=== PATIENT | female | born 1995 | race African-American/Black ===

== ENCOUNTER 2017-03-18 02:36 | Emergency (ER) | payer MEDICAID ==
[2017-03-18] MEDS ORDERED: ACETAMINOPHEN 325 MG TABLET PO ONE (03:01)
--- NOTE | 2017-03-18 03:05 | ER Document Report ---
ED General - General Chief Complaint: Abdominal Pain Stated Complaint: ABDOMEN PAIN/DIZZY/HEADACHE Time Seen by Provider: 03/18/17 02:56 Notes: Patient is a 21-year-old female who is currently . She states was about 5-6 weeks . No ultrasound yet. She complains of crampy lower abdominal pain that radiates to her back. She says it feels like a menstrual cramp. She also has mild headache. Says headache is also been there for 2 days. She has not taken anything for the headache at home. No vomiting. No fevers. No diarrhea. No dysuria. No other complaints at this time. No abnormal vaginal discharge or bleeding. TRAVEL OUTSIDE OF THE [place] IN LAST 30 DAYS: No - Related Data Allergies/Adverse Reactions: No Known Allergies Allergy (Verified 05/31/16 11:19) Past Medical History - Social History Smoking Status: Unknown if Ever Smoked Frequency of alcohol use: None Drug Abuse: None Family History: CAD, DM Patient has suicidal ideation: No Patient has homicidal ideation: No - Past Medical History Cardiac Medical History: Reports: Hx Hypertension - during pregnenacy Pulmonary Medical History: Reports: Hx Asthma Neurological Medical History: Reports: Hx Migraine Renal/ Medical History: Denies: Hx Peritoneal Dialysis Psychiatric Medical History: Reports: Hx Attention Deficit Hyperactivity Disorder Traumatic Medical History: Reports: Hx Fractures Past Surgical History: Reports: Hx Orthopedic Surgery - Immunizations Immunizations up to date: Yes Hx Diphtheria, Pertussis, Tetanus Vaccination: Yes Review of Systems - Review of Systems Notes: My Normal Review Basic REVIEW OF SYSTEMS: CONSTITUTIONAL : Denies fever, chills, or sweats. Denies recent illness. RESPIRATORY: Denies cough, cold, or chest congestion. Denies shortness of breath, difficulty breathing, or wheezing. GASTROINTESTINAL: Lower abdominal pain. Denies nausea, vomiting, or diarrhea. Denies constipation. Last BM: GENITOURINARY: Denies difficulty urinating, painful urination, burning, frequency, or blood in urine. FEMALE GENITOURINARY: Denies vaginal bleeding, abnormal or irregular periods. LMP: Currently . MUSCULOSKELETAL: Denies neck or back pain or joint pain or swelling. SKIN: Denies rash or skin lesions. HEMATOLOGIC : Denies easy bruising or bleeding. LYMPHATIC: Denies swollen, enlarged glands. NEUROLOGICAL: Denies altered mental status or loss of consciousness. Denies headache. Denies weakness or paralysis or loss of use of either side. Denies problems with gait or speech. Denies sensory or motor loss. ALL OTHER SYSTEMS REVIEWED AND NEGATIVE. Physical Exam - Vital signs Vitals: Temp Pulse Resp BP Pulse Ox 98 F 80 18 119/66 99 03/18/17 02:42 03/18/17 02:42 03/18/17 02:42 03/18/17 02:42 03/18/17 02:42 - Notes Notes: General Appearance: Well nourished, alert, cooperative, no acute distress, no obvious discomfort. Well appearing. Vitals: reviewed, See vital signs table. Head: no swelling or tenderness to the head Eyes: PERRL, EOMI, Conjuctiva clear Mouth: No decreasd moisture Neck: Supple, no neck tenderness Lungs: No wheezing, No rales, No rhonci, No accessory muscle use, good air exchange bilaterally. Heart: Normal rate, Regular rythm, No murmur, no rub Abdomen: Normal BS, soft, No rigidity, mild lower abdominal tenderness, No guarding, no rebound, no abdominal masses, no organomegaly Extremities: strength 5/5 in all extremities, good pulses in all extremities, no swelling or tenderness in the extremities, no edema. Skin: warm, dry, appropriate color, no rash Neuro: speech clear, oriented x 3, normal affect, responds appropriately to questions. Cranial nerves II through XII are intact. Patient was all extremities on her own. No focal neurologic deficits on exam. Course - Re-evaluation Re-evalutation: 03/18/17 05:14 Patient has pain which sounds to be urine type contraction or crampy type pain. She describes it as menstrual type pain. Her ultrasound shows a IUP with evidence of cardiac activity. He cannot measure the heart rate. Pelvic exam did not show any evidence of discharge or bleeding. Wet prep is negative. At this time for the patient safe to be discharged home. I encouraged her [facility]. Encouraged to return to the ER if she has worsening pain, any vaginal bleeding, fevers, or feels unwell. I encourage her to continue to take vitamins. Patient agrees with plan and will be discharged home. Dictation of this chart was performed using voice recognition software; therefore, there may be some unintended grammatical errors. - Vital Signs Vital signs: Temp Pulse Resp BP Pulse Ox 98 F 80 18 119/66 99 03/18/17 02:42 03/18/17 02:42 03/18/17 02:42 03/18/17 02:42 03/18/17 02:42 - Laboratory Laboratory results interpreted by me: 03/18/17 03/18/17 03:09 04:32 Beta HCG, Quant 08112.00 H Urine Ketones TRACE H Discharge - Discharge Clinical Impression: Abdominal pain affecting Condition: Good Disposition: HOME, SELF-CARE Additional Instructions: Please take vitamins. Please take acetaminophen for pain. [facility] and continued management of your . please return to the ER immediately if you have worsening pain, fevers, vaginal bleeding, or feel unwell. Referrals: TIARRA CEDENO MD [Primary Care Provider] - Follow up as needed LORIN ARRIAGA DO [[facility]] - Follow up in 3-5 days
[2017-03-18 04:44] LABS: APPEARANCE,URINE SLIGHTLY-CLOUDY; BILIRUBIN,URINE NEGATIVE (NEGATIVE); GLUCOSE, URINE NEGATIVE (NEGATIVE); KETONES,URINE TRACE mg/dL (NEGATIVE); LEUKOCYTE ESTERASE,URINE NEGATIVE (NEGATIVE); NITRITE,URINE NEGATIVE (NEGATIVE); PROTEIN,URINE NEGATIVE (NEGATIVE); URINE SPECIFIC GRAVITY 1.019; UROBILINOGEN,URINE NEGATIVE mg/dL (<2.0)
--- NOTE | 2017-03-18 05:01 | RADIOLOGY REPORT (SQ) ---
EXAM DESCRIPTION: U/S OB TRANSVAG W/DOPPLER COMPLETED DATE/TIME: 03/18/2017 4:42 am REASON FOR STUDY: abdominal pain in COMPARISON: None. TECHNIQUE: Transvaginal static and realtime grayscale images acquired of the pelvis. Additional lucas cted spectral and color Doppler images recorded. All images stored [place] PACs[place] [facility] [email or web address] LIMITATIONS: None. FINDINGS: FETUS: Intrauterine . EGA: 6 week 1 day NARDA: 11/10/2017 FHR: cardiac flicker. SUBCHORIONIC BLEED: No. SIZE OF BLEED: Not applicable. UTERUS: Measures 9.7 x 5.2 x 5.3 cm. CERVICAL LENGTH: Measures 2.8 cm. Closed. RIGHT ADNEXA: The right ovary measures 2.3 x 2.3 x 2.3 cm. Flow by Doppler was shown to the right ov jack. LEFT ADNEXA: The left ovary was not visualized. FREE FLUID: None. IMPRESSION: INTRAUTERINE WITH CARDIAC FLICKER, SHORT-TERM FOLLOWUP ULTRASOUND RECOMM ENDED TO RE-EVALUATE THE HEART RATE. EGA 6 WEEKS 1 DAY. Trimester of : First - 0 to 13 weeks. TECHNICAL DOCUMENTATION: JOB ID: [id number] [employer]- All Rights Reserved
[2017-03-18 05:17] LABS: CHLAM PCR NOT DETECTED (NOT DETECT)
[2017-03-18 06:06] VITALS: BP 114/65
== END 2017-03-18 05:45 | disposition home or self-care (01) ==
LOC: ER 02:36
DX: O26.899 Other specified pregnancy related conditions, unspecified trimester (principal); R10.30 Lower abdominal pain, unspecified; R51 Headache; O99.519 Diseases of the respiratory system complicating pregnancy, unspecified trimester; J45.909 Unspecified asthma, uncomplicated; Z3A.00 Weeks of gestation of pregnancy not specified
CPT/HCPCS: 99284; 36415; 87210; 84702; 81001; 87491; 87591; 76817; 93976; J3490

== ENCOUNTER → 2017-04-17 | Outpatient (CLI) | payer MEDICAID ==
[2017-04-17 13:43] LABS: ALANINE AMINOTRANSFERASE 18 U/L (9-52); ALBUMIN 4.5 g/dL (3.5-5.0); ALKALINE PHOSPHATASE 59 U/L (38-126); ANION GAP 14 (5-19); ASPARTATE AMINO TRANSFERASE 15 U/L (14-36); BILIRUBIN,DIRECT 0.3 mg/dL (0.0-0.4); BILIRUBIN,TOTAL 0.5 mg/dL (0.2-1.3); BLOOD UREA NITROGEN 9 mg/dL (7-20); CALCIUM 9.8 mg/dL (8.4-10.2); CARBON DIOXIDE 22 mmol/L (22-30); CHLORIDE 101 mmol/L (98-107); CREATININE RESULT 0.71 mg/dL (0.52-1.25); GLUCOSE 90 mg/dL (75-110); POTASSIUM 4.1 mmol/L (3.6-5.0); SODIUM 136.6 mmol/L (137-145)
== END ==
LOC: OCH 13:09
DX: Z34.81 Encounter for supervision of other normal pregnancy, first trimester (principal)
CPT/HCPCS: 36415; 80053

== ENCOUNTER 2017-04-18 14:23 | Emergency (ER) | payer MEDICAID ==
[2017-04-18 14:39] VITALS: BP 130/71
[2017-04-18] MEDS ORDERED: KETOROLAC TROMETHAMINE 60 MG/2 ML SDV IM ONE (15:17)
--- NOTE | 2017-04-18 15:18 | ER Document Report ---
ED Medical Screen (RME) - General Chief Complaint: Abdominal Pain Stated Complaint: FOOT INJURY Time Seen by Provider: 04/18/17 15:13 Mode of Arrival: Wheelchair Information source: Patient Notes: 21-year-old female presents with 2 separate complaints, patient notes she has right foot and ankle pain after fall 3-4 days ago. Patient has been able to ambulate on. Patient also notes body aches generalized with fever. Patient notes intermittent urinary incontinence when she vomits I have greeted and performed a rapid initial assessment of this patient. A comprehensive ED assessment and evaluation of the patient, analysis of test results and completion of the medical decision making process will be conducted by additional ED providers. PHYSICAL EXAMINATION: GENERAL: Well-appearing, well-nourished and in no acute distress. HEAD: Atraumatic, normocephalic. EYES: Pupils equal round extraocular movements intact, conjunctiva are normal. ENT: Nares patent NECK: Normal range of motion LUNGS: No respiratory distress Musculoskeletal: Normal range of motion, mild tenderness of the right ankle NEUROLOGICAL: Normal speech, normal gait. PSYCH: Normal mood, normal affect. SKIN: Warm, Dry, normal turgor, no rashes or lesions noted. TRAVEL OUTSIDE OF THE [place] IN LAST 30 DAYS: No - Related Data Allergies/Adverse Reactions: No Known Allergies Allergy (Verified 04/18/17 14:30) Home Medications: Current Home Medications No Home Medications 04/18/17 [History] Past Medical History - Social History Chew tobacco use (# tins/day): No Frequency of alcohol use: None Drug Abuse: None - Past Medical History Cardiac Medical History: Reports: Hx Hypertension - during pregnenacy Pulmonary Medical History: Reports: Hx Asthma Neurological Medical History: Reports: Hx Migraine Renal/ Medical History: Denies: Hx Peritoneal Dialysis Psychiatric Medical History: Reports: Hx Attention Deficit Hyperactivity Disorder Traumatic Medical History: Reports: Hx Fractures Past Surgical History: Reports: Hx Orthopedic Surgery - Immunizations Immunizations up to date: Yes Hx Diphtheria, Pertussis, Tetanus Vaccination: Yes Physical Exam - Vital signs Vitals: Temp Pulse Resp BP Pulse Ox 99.6 F 97 16 130/71 H 99 04/18/17 14:29 04/18/17 14:29 04/18/17 14:29 04/18/17 14:29 04/18/17 14:29 Course - Vital Signs Vital signs: Temp Pulse Resp BP Pulse Ox 99.6 F 97 16 130/71 H 99 04/18/17 14:29 04/18/17 14:29 04/18/17 14:29 04/18/17 14:29 04/18/17 14:29
[2017-04-18] MEDS ORDERED: ACETAMINOPHEN 325 MG TABLET PO ONE (15:38)
[2017-04-18 15:58] LABS: ABSOLUTE LYMPHOCYTES (AUTO) 0.4 10^3/uL (0.5-4.7); ABSOLUTE MONOCYTES (AUTO) 0.5 10^3/uL (0.1-1.4); ABSOLUTE NEUT (AUTO) 4.2 10^3/uL (1.7-8.2); BASOPHILS % (AUTO) 0.3 % (0-2); EOSINOPHILS % (AUTO) 0.1 % (0-6); HEMATOCRIT 33.4 % (36.0-47.0); HEMOGLOBIN 11.5 g/dL (12.0-15.5); HGB HCT DIFFERENCE 1.1; LYMPHOCYTES % (AUTO) 8.2 % (13-45); MEAN CORPUSCULAR HEMOGLOBIN 33.1 pg (27.0-33.4); MEAN CORPUSCULAR HGB CONC 34.5 g/dL (32.0-36.0); MEAN CORPUSCULAR VOLUME 96 fl (80-97); MONOCYTES % (AUTO) 9.4 % (3-13); RED BLOOD COUNT 3.48 10^6/uL (3.72-5.28); RED CELL DISTRIBUTION WIDTH 13.7 % (11.5-14.0); WHITE BLOOD COUNT 5.2 10^3/uL (4.0-10.5)
--- NOTE | 2017-04-18 16:09 | RADIOLOGY REPORT (SQ) ---
EXAM DESCRIPTION: ANKLE RIGHT COMPLETE COMPLETED DATE/TIME: 04/18/2017 4:00 pm REASON FOR STUDY: ankle injury COMPARISON: None. NUMBER OF VIEWS: Three views. TECHNIQUE: AP, lateral, and oblique radiographic images acquired of the right ankle. LIMITATIONS: None. FINDINGS: MINERALIZATION: Normal. BONES: No acute fracture or dislocation. No worrisome bone lesions. JOINTS: No effusions. SOFT TISSUES: No soft tissue swelling. No foreign body. OTHER: No other significant finding. IMPRESSION: NEGATIVE STUDY OF THE RIGHT ANKLE. NO RADIOGRAPHIC EVIDENCE OF ACUTE INJURY. TECHNICAL DOCUMENTATION: JOB ID: [id number] [employer]- All Rights Reserved
[2017-04-18 16:17] LABS: ALANINE AMINOTRANSFERASE 21 U/L (9-52); ALBUMIN 4.2 g/dL (3.5-5.0); ALKALINE PHOSPHATASE 58 U/L (38-126); ANION GAP 12 (5-19); ASPARTATE AMINO TRANSFERASE 17 U/L (14-36); BILIRUBIN,DIRECT 0.3 mg/dL (0.0-0.4); BILIRUBIN,TOTAL 0.6 mg/dL (0.2-1.3); BLOOD UREA NITROGEN 7 mg/dL (7-20); CALCIUM 9.5 mg/dL (8.4-10.2); CARBON DIOXIDE 22 mmol/L (22-30); CHLORIDE 101 mmol/L (98-107); CREATININE RESULT 0.67 mg/dL (0.52-1.25); GLUCOSE 97 mg/dL (75-110); POTASSIUM 3.8 mmol/L (3.6-5.0); SODIUM 135.3 mmol/L (137-145); TOTAL PROTEIN 7.6 g/dL (6.3-8.2)
[2017-04-18 17:09] LABS: APPEARANCE,URINE TURBID; BILIRUBIN,URINE NEGATIVE (NEGATIVE); GLUCOSE, URINE NEGATIVE (NEGATIVE); KETONES,URINE 20 mg/dL (NEGATIVE); LEUKOCYTE ESTERASE,URINE NEGATIVE (NEGATIVE); NITRITE,URINE NEGATIVE (NEGATIVE); PROTEIN,URINE NEGATIVE (NEGATIVE); UROBILINOGEN,URINE NEGATIVE mg/dL (<2.0)
--- NOTE | 2017-04-18 17:38 | ER Document Report ---
ED General - General Chief Complaint: Abdominal Pain Stated Complaint: FOOT INJURY Time Seen by Provider: 04/18/17 15:13 Mode of Arrival: Wheelchair Information source: Patient TRAVEL OUTSIDE OF THE [place] IN LAST 30 DAYS: No - HPI Patient complains to provider of: Right foot pain Onset: Other - 3 days Onset/Duration: Sudden Quality of pain: Achy Severity: Moderate Associated symptoms: Body/muscle aches, Chills, Fever, Nausea, Vomiting Exacerbated by: Movement, Walking Relieved by: Denies Similar symptoms previously: No Recently seen / treated by doctor: No Notes: Patient is a 21-year-old female who is approximately 10 weeks , has not yet been seen by [facility], presenting to the emergency room complaining of right foot pain from a fall that she sustained 3 days ago, she has been ambulating on the foot since, she also reports some nausea and vomiting associated with , as well as low-grade temp and chills, denies sore throat, denies ear pain, denies abdominal pain, no dysuria or hematuria, no vaginal bleeding or discharge, denies cough, cold or congestion, no sick contacts - Related Data Allergies/Adverse Reactions: No Known Allergies Allergy (Verified 04/18/17 14:30) Home Medications: Current Home Medications No Home Medications 04/18/17 [History] Past Medical History - General Information source: Patient - Social History Smoking Status: Never Smoker Chew tobacco use (# tins/day): No Frequency of alcohol use: None Drug Abuse: None Family History: CAD, DM Patient has suicidal ideation: No Patient has homicidal ideation: No - Past Medical History Cardiac Medical History: Reports: Hx Hypertension - during pregnenacy Pulmonary Medical History: Reports: Hx Asthma Neurological Medical History: Reports: Hx Migraine Renal/ Medical History: Denies: Hx Peritoneal Dialysis Psychiatric Medical History: Reports: Hx Attention Deficit Hyperactivity Disorder Traumatic Medical History: Reports: Hx Fractures Past Surgical History: Reports: Hx Orthopedic Surgery - Immunizations Immunizations up to date: Yes Hx Diphtheria, Pertussis, Tetanus Vaccination: Yes Review of Systems - Review of Systems Constitutional: See HPI EENT: No symptoms reported Cardiovascular: No symptoms reported Respiratory: No symptoms reported Gastrointestinal: See HPI Genitourinary: No symptoms reported Female Genitourinary: No symptoms reported Musculoskeletal: See HPI Skin: No symptoms reported Hematologic/Lymphatic: No symptoms reported Neurological/Psychological: No symptoms reported -: Yes All other systems reviewed and negative Physical Exam - Vital signs Vitals: Temp Pulse Resp BP Pulse Ox 99.6 F 97 16 130/71 H 99 04/18/17 14:29 04/18/17 14:29 04/18/17 14:29 04/18/17 14:29 04/18/17 14:29 Interpretation: Normal - General General appearance: Appears well, Alert - HEENT Head: Normocephalic, Atraumatic Eyes: Normal Pupils: PERRL - Respiratory Respiratory status: No respiratory distress Chest status: Nontender Breath sounds: Normal Chest palpation: Normal - Cardiovascular Rhythm: Regular Heart sounds: Normal auscultation Murmur: No - Abdominal Inspection: Normal Distension: No distension Bowel sounds: Normal Tenderness: Nontender Organomegaly: No organomegaly - Back Back: Normal, Nontender - Extremities General upper extremity: Normal inspection, Nontender, Normal color, Normal ROM , Normal temperature General lower extremity: Normal color, Normal ROM, Normal temperature. No: Emiliana's sign Foot: Tender - Tenderness to palpate over the dorsal surface of the right foot, at the base of the fourth and fifth metatarsals, mild pain with range of motion testing, no ecchymosis or swelling, distal sensation and motor is intact with 2 + DP pulses - Neurological Neuro grossly intact: Yes Cognition: Normal Orientation: AAOx4 [place] Coma Scale Eye Opening: Spontaneous [place] Coma Scale Verbal: Oriented Evelyne Coma Scale Motor: Obeys Commands Evelyne Coma Scale Total: 15 Speech: Normal Motor strength normal: LUE, RUE, LLE, RLE Sensory: Normal - Psychological Associated symptoms: Normal affect, Normal mood - Skin Skin Temperature: Warm Skin Moisture: Dry Skin Color: Normal Course - Re-evaluation Re-evalutation: 04/18/17 19:54 bedside ultrasound with completed which confirmed positive IUP with appropriate heart rate, lab and imaging findings were discussed with patient at bedside which are unremarkable, Km wrap was placed on the right foot, she was offered crutches which she declined, she was advised to follow-up with her primary care provider as well as orthopedic surgery, or return if symptoms worsen, patient acknowledges understanding and agreement with this plan - Vital Signs Vital signs: Temp Pulse Resp BP Pulse Ox 99.6 F 97 16 130/71 H 99 04/18/17 14:29 04/18/17 14:29 04/18/17 14:29 04/18/17 14:29 04/18/17 14:29 - Laboratory Result Diagrams: 04/18/17 15:36 04/18/17 15:36 Laboratory results interpreted by me: 04/18/17 04/18/17 04/18/17 15:36 15:36 15:36 RBC 3.48 L Hgb 11.5 L Hct 33.4 L Seg Neutrophils % 82.0 H Lymphocytes % 8.2 L Absolute Lymphocytes 0.4 L Sodium 135.3 L Beta HCG, Quant 205791.00 H Urine Ketones 04/18/17 15:50 RBC Hgb Hct Seg Neutrophils % Lymphocytes % Absolute Lymphocytes Sodium Beta HCG, Quant Urine Ketones 20 H - Diagnostic Test Radiology reviewed: Image reviewed, Reports reviewed Procedures - Immobilization Right Foot Time completed: 19:55 Pre-Proc Neuro Vasc Exam: Normal Immobilizer type: Km wrap Performed by: PCT Post-Proc Neuro Vasc Exam: Normal Alignment checked and good: Yes Discharge - Discharge Clinical Impression: Viral illness Foot sprain Qualifiers: Encounter type: initial encounter Laterality: right Qualified Code(s): S93.601A - Unspecified sprain of right foot, initial encounter Qualifiers: Weeks of gestation: 10 weeks Qualified Code(s): Z3A.10 - 10 weeks gestation of Condition: Stable Disposition: HOME, SELF-CARE Instructions: Viral Syndrome ([facility]), Sprain ([facility]), Ice Packs ([facility]) Additional Instructions: Follow up with your primary care provider, OBGYN and an orthopedic surgeon in one to 2 days. Return to the emergency room immediately if symptoms worsen or any additional concerns. Ice and elevate the affected extremity. Limit weightbearing.
== END 2017-04-18 18:38 | disposition home or self-care (01) ==
LOC: ER 14:23
DX: O9A.211 Injury, poisoning and certain other consequences of external causes complicating pregnancy, first trimester (principal); S93.601A Unspecified sprain of right foot, initial encounter; B34.9 Viral infection, unspecified; Z3A.10 10 weeks gestation of pregnancy; W19.XXXA Unspecified fall, initial encounter
CPT/HCPCS: 99284; 86900; 86901; 36415; 87086; 84702; 85025; 80053; 81001; 73610; J3490

== ENCOUNTER 2017-04-28 15:12 | Emergency (ER) | payer MEDICAID ==
[2017-04-28] MEDS ORDERED: ONDANSETRON 4 MG TAB.RAPDIS PO ONE (15:53)
[2017-04-28] MEDS ORDERED: NORMAL SALINE 1000 ML 1,000 ML IV ONE (15:53)
--- NOTE | 2017-04-28 15:58 | ER Document Report ---
ED GI/ - General Mode of Arrival: Ambulatory Information source: Patient TRAVEL OUTSIDE OF THE [place] IN LAST 30 DAYS: No - HPI Patient complains to provider of: - 12 weeks, Vomiting Onset: Other Associated symptoms: Nausea, Vomiting Similar symptoms previously: Yes Recently seen / treated by doctor: Yes - 2 weeks ago <PRADIP ERICKSON - Last Filed: 04/28/17 17:20> <ANIL BRIGGS - Last Filed: 04/28/17 20:37> - General Chief Complaint: Nausea/Vomiting Stated Complaint: NAUSEA Notes: Patient is a 21 year old female presenting to the emergency department for nausea and vomiting x2 weeks. Patient is 12 weeks and had an ultrasound [facility]. Patient has not been able to eat x2 days. Patient tried to see an OB today but was told to come to the ED instead. Patient states she was seen 2 weeks ago in this department for the same. Patient states she has a bad cough after the vomiting but denies any chest pain or shortness of breath. Patient is . Patient did not have vomiting like this in her previous . Patient states she also urinates on herself when she vomits. Patient has no known allergies. (PRADIP ERICKSON) - Related Data Allergies/Adverse Reactions: No Known Allergies Allergy (Verified 04/28/17 15:16) Past Medical History - General Information source: Patient - Social History Smoking Status: Former Smoker Chew tobacco use (# tins/day): No Frequency of alcohol use: Rare Drug Abuse: None Family History: CAD, DM Patient has suicidal ideation: No Patient has homicidal ideation: No - Past Medical History Cardiac Medical History: Reports: Hx Hypertension - during pregnenacy Pulmonary Medical History: Reports: Hx Asthma Neurological Medical History: Reports: Hx Migraine Psychiatric Medical History: Reports: Hx Attention Deficit Hyperactivity Disorder Traumatic Medical History: Reports: Hx Fractures Past Surgical History: Reports: Hx Orthopedic Surgery - Immunizations Immunizations up to date: Yes Hx Diphtheria, Pertussis, Tetanus Vaccination: Yes <PRADIP ERICKSON - Last Filed: 04/28/17 17:20> Review of Systems - Review of Systems Constitutional: No symptoms reported EENT: No symptoms reported Cardiovascular: No symptoms reported Respiratory: See HPI, Cough Gastrointestinal: See HPI, Nausea, Vomiting Genitourinary: No symptoms reported Female Genitourinary: No symptoms reported Musculoskeletal: No symptoms reported Skin: No symptoms reported Hematologic/Lymphatic: No symptoms reported Neurological/Psychological: No symptoms reported -: Yes All other systems reviewed and negative <PRADIP ERICKSON - Last Filed: 04/28/17 17:20> Physical Exam <PRADIP ERICKSON - Last Filed: 04/28/17 17:20> <ANIL BRIGGS - Last Filed: 04/28/17 20:37> - Vital signs Vitals: Temp Pulse Resp BP Pulse Ox 98.4 F 70 12 111/77 99 04/28/17 15:17 04/28/17 15:17 04/28/17 15:17 04/28/17 15:17 04/28/17 15:17 - Notes Notes: GENERAL: Alert, interacts well. No acute distress. HEAD: Normocephalic, atraumatic. EYES: Pupils equal, round, and reactive to light. Extraocular movements intact. ENT: Oral mucosa moist, tongue midline. NECK: Full range of motion. Supple. Trachea midline. LUNGS: Clear to auscultation bilaterally, no wheezes, rales, or rhonchi. No respiratory distress. HEART: Regular rate and rhythm. No murmurs, gallops, or rubs. ABDOMEN: Soft, non-tender. Non-distended. Bowel sounds present in all 4 quadrants. EXTREMITIES: Moves all 4 extremities spontaneously. No edema. NEUROLOGICAL: Alert and oriented x3. Normal speech. PSYCH: Normal affect, normal mood. SKIN: Warm, dry, normal turgor. No rashes or lesions noted. (GEORGINAPRADIP) Course - Laboratory Result Diagrams: 04/28/17 16:30 04/28/17 16:30 <PRADIP ERICKSON - Last Filed: 04/28/17 17:20> - Laboratory Result Diagrams: 04/28/17 16:30 04/28/17 18:35 <ANIL BRIGGS - Last Filed: 04/28/17 20:37> - Re-evaluation Re-evalutation: 04/28/17 20:30 CBC unremarkable, CMP unremarkable, quantitative beta-hCG quite elevated as is expected at 12 weeks , urinalysis shows 80 of ketones consistent with dehydration, this was treated with a liter of normal saline, patient is O+ so RhoGam is not indicated, transvaginal ultrasound shows no evidence of subchorionic hemorrhage, single intrauterine 12 weeks 1 day, heart rate 169 bpm. Patient was able to tolerate crackers as well as a drink after single dose of Zofran. Hydrated with a liter of normal saline. Patient will be discharged home with prescription for Reglan, Diclgeis and Zofran. Patient was aware that Zofran as a last resort and can be associated with some heart defects and defects. (ANIL BRIGGS) - Vital Signs Vital signs: Temp Pulse Resp BP Pulse Ox 98.4 F 70 12 111/77 99 04/28/17 15:17 04/28/17 15:17 04/28/17 15:17 04/28/17 15:17 04/28/17 15:17 - Laboratory Laboratory results interpreted by me: 04/28/17 04/28/17 04/28/17 16:30 18:00 18:35 Hct 35.2 L Beta HCG, Quant 827809.00 H Urine Protein 30 H Urine Ketones 80 H Urine Ascorbic Acid 40 H Discharge <PRADIP ERICKSON - Last Filed: 04/28/17 17:20> <ANIL BRIGGS - Last Filed: 04/28/17 20:37> - Discharge Clinical Impression: Nausea and vomiting during prior to 22 weeks gestation, Dehydration during Condition: Stable Disposition: HOME, SELF-CARE Additional Instructions: Hyperemesis Gravidarum Hyperemesis gravidarum is the medical term for severe vomiting during . We don't know exactly why it occurs, but it's a common problem. Dehydration can occur. This reduces blood flow to the placenta, decreasing the baby's nourishment. The baby will also become dehydrated. There can be harmful changes in blood sodium, potassium, or acid balance. Our goal is to correct, and prevent, dehydration. For severe cases, we give IV fluids. Antinausea medication will be prescribed. (Don't be concerned about " defects" -- the risk to you and your baby from the hyperemesis is the biggest problem. The antinausea medication is very safe at this stage of .) Call the doctor if you have vaginal bleeding, abdominal pain, severe lightheadedness or weakness, or other alarming symptoms. Try the Diclegis first, then the Reglan, if these do not work you may take the Zofran. These medications work for most women but they do not work for all women. If you have persistent vomiting despite taking these medications please follow-up with the health department or [facility]. Prescriptions: Doxylamine/Pyridoxine HCl [Charlene Graham 10-10 mg Tablet] 2 each PO QHS #30 tablet. Ondansetron [Zofran Odt 4 mg Tablet] 4 mg PO Q4HP PRN #20 tab.rapdis PRN Reason: Metoclopramide HCl [Reglan 10 mg Tablet] 10 mg PO ACHS #90 tablet Forms: Return to Work Referrals: [facility] [Provider Group] - Follow up as needed Scribe Attestation: 04/28/17 20:37 I personally performed the services described in the documentation, reviewed and edited the documentation which was dictated to the scribe in my presence, and it accurately records my words and actions. (ANIL BRIGGS) Scribe Documentation - Scribe Written by Olivia:: Olivia Levine 04/28/17 15:55 acting as scribe for :: Lisa <PRADIP ERICKSON - Last Filed: 04/28/17 17:20>
[2017-04-28 17:00] LABS: ABSOLUTE MONOCYTES (AUTO) 0.5 10^3/uL (0.1-1.4); BASOPHILS % (AUTO) 0.8 % (0-2); EOSINOPHILS % (AUTO) 0.8 % (0-6); HEMATOCRIT 35.2 % (36.0-47.0); HEMOGLOBIN 12.3 g/dL (12.0-15.5); HGB HCT DIFFERENCE 1.7; MEAN CORPUSCULAR HEMOGLOBIN 33.1 pg (27.0-33.4); MEAN CORPUSCULAR HGB CONC 35.1 g/dL (32.0-36.0); MEAN CORPUSCULAR VOLUME 95 fl (80-97); MONOCYTES % (AUTO) 8.5 % (3-13); RED BLOOD COUNT 3.72 10^6/uL (3.72-5.28); SEGMENTED NEUTROPHILS % (AUTO) 71.9 % (42-78); WHITE BLOOD COUNT 5.6 10^3/uL (4.0-10.5)
--- NOTE | 2017-04-28 17:29 | RADIOLOGY REPORT (SQ) ---
EXAM DESCRIPTION: U/S OB TRANSVAG W/DOPPLER COMPLETED DATE/TIME: 04/28/2017 5:20 pm REASON FOR STUDY: low abd pain, COMPARISON: 03/18/2017. TECHNIQUE: Transabdominal static and realtime grayscale images acquired of the pelvis. Additional se lected spectral and color Doppler images recorded. All images stored on PACs. bHCG: Not available. LIMITATIONS: None. FINDINGS: FETUS: Living intrauterine . EGA: 12 WEEKS 1 DAY NARDA: 11/09/2017 FHR: 169 beats per minute. SUBCHORIONIC BLEED: No. SIZE OF BLEED: Not applicable. UTERUS: No masses. No anomalies. CERVICAL LENGTH: 3.9 cm. Closed. RIGHT ADNEXA: Normal ovary with normal vascular flow. No adnexal free fluid. No adnexal masses. LEFT ADNEXA: Ovary not identified. No adnexal free fluid. No adnexal masses. FREE FLUID: None. OTHER: No other significant finding. IMPRESSION: LIVING INTRAUTERINE . EGA 12 WEEKS 1 DAY. Trimester of : First - 0 to 13 weeks. TECHNICAL DOCUMENTATION: JOB ID: [id number] [employer]- All Rights Reserved
[2017-04-28 18:36] LABS: APPEARANCE,URINE CLEAR; BILIRUBIN,URINE NEGATIVE (NEGATIVE); GLUCOSE, URINE NEGATIVE (NEGATIVE); KETONES,URINE 80 mg/dL (NEGATIVE); LEUKOCYTE ESTERASE,URINE NEGATIVE (NEGATIVE); NITRITE,URINE NEGATIVE (NEGATIVE); PROTEIN,URINE 30 mg/dL (NEGATIVE); URINE SPECIFIC GRAVITY 1.034; UROBILINOGEN,URINE NEGATIVE mg/dL (<2.0)
[2017-04-28 19:01] LABS: ALANINE AMINOTRANSFERASE 22 U/L (9-52); ALBUMIN 4.5 g/dL (3.5-5.0); ALKALINE PHOSPHATASE 54 U/L (38-126); ANION GAP 14 (5-19); ASPARTATE AMINO TRANSFERASE 20 U/L (14-36); BILIRUBIN,DIRECT 0.4 mg/dL (0.0-0.4); BILIRUBIN,TOTAL 0.6 mg/dL (0.2-1.3); BLOOD UREA NITROGEN 12 mg/dL (7-20); CALCIUM 9.9 mg/dL (8.4-10.2); CARBON DIOXIDE 22 mmol/L (22-30); CHLORIDE 104 mmol/L (98-107); CREATININE RESULT 0.61 mg/dL (0.52-1.25); GLUCOSE 79 mg/dL (75-110); POTASSIUM 4.3 mmol/L (3.6-5.0); SODIUM 139.8 mmol/L (137-145); TOTAL PROTEIN 7.8 g/dL (6.3-8.2)
[2017-04-28 20:39] VITALS: BP 110/74
== END 2017-04-28 20:39 | disposition home or self-care (01) ==
LOC: ER 15:12
DX: O21.9 Vomiting of pregnancy, unspecified (principal); O99.281 Endocrine, nutritional and metabolic diseases complicating pregnancy, first trimester; E86.0 Dehydration; O99.511 Diseases of the respiratory system complicating pregnancy, first trimester; J45.909 Unspecified asthma, uncomplicated; O26.891 Other specified pregnancy related conditions, first trimester; R05 Cough; R32 Unspecified urinary incontinence; Z3A.12 12 weeks gestation of pregnancy; Z87.891 Personal history of nicotine dependence
CPT/HCPCS: 99284; 96360; 86900; 86901; 36415; 84702; 85025; 80053; 81001; 76817; 93976; S0119; J7030

== ENCOUNTER 2017-08-21 08:34 | Outpatient (CLI) | payer MEDICAID ==
[2017-08-21 09:32] LABS: APPEARANCE,URINE CLOUDY; BILIRUBIN,URINE NEGATIVE (NEGATIVE); GLUCOSE, URINE NEGATIVE (NEGATIVE); KETONES,URINE NEGATIVE (NEGATIVE); LEUKOCYTE ESTERASE,URINE SMALL (NEGATIVE); NITRITE,URINE NEGATIVE (NEGATIVE); PROTEIN,URINE 30 mg/dL (NEGATIVE); UROBILINOGEN,URINE NEGATIVE mg/dL (<2.0)
[2017-08-21 10:02] LABS: URINE BARBITURATES SCREEN NEGATIVE; URINE METHADONE SCREEN NEGATIVE; URINE OPIATES LOW NEGATIVE; URINE PHENCYCLIDINE SCREEN NEGATIVE
[2017-08-21 10:24] LABS: URINE CREATININE 159.9 mg/dL (16-327); URINE PROTEIN 9.5 mg/dL (<12)
--- NOTE | 2017-08-21 10:45 | Non Stress Test Report ---
Non Stress Test Datetime Report Generated by CPN: 08/21/2017 10:45 DEMOGRAPHIC EGA NST: 28.1 INDICATION Indication for Study: Decreased Movement VITAL SIGNS Temperature - NST: 99.3 NBPSYS NST: 111 NBPDIA NST: 59 MONITORING Monitor Explained: Monitor Explained; Test Explained; Patient Verbalized Understanding Time on Monitor: 08/21/2017 08:58 Time off Monitor: 08/21/2017 10:31 NST Duration: 93 NST INTERVENTIONS NST Interventions: PO Hydration; Reposition Patient Physician Notified NST: Tamiko Philippe, CNM BABY A: [id number] BABY A Movement : Present Contraction Frequency : 0 FHR Baseline : 130 Accelerations : 15X15 Decelerations : None Variability : Moderate 6-25bpm NST Review: Meets Criteria for Reactive NST NST Review and Verified By : Arnulfo Evangelista RNC NST Results: Reactive NST REPORT Report Trigger: Send Report
== END 2017-08-21 10:34 | disposition home or self-care (01) ==
LOC: LC 08:34
PROVIDERS: ATTEND Obstetrics & Gynecology
PROC: 4A1HXCZ Monitoring of Products of Conception, Cardiac Rate, External Approach (ICD-10-PCS; principal; 2017-08-21)
DX: O36.8130 Decreased fetal movements, third trimester, not applicable or unspecified (principal); Z3A.28 28 weeks gestation of pregnancy
CPT/HCPCS: 59025; 80307; 81001; 82570; 84156

== ENCOUNTER 2017-08-22 04:28 | Emergency (ER) | payer MEDICAID ==
[2017-08-22] MEDS ORDERED: ONDANSETRON HCL INJ/PF 4 MG/2 ML SDV IV ONE (04:49)
--- NOTE | 2017-08-22 04:51 | ER Document Report ---
ED Medical Screen (RME) - General Chief Complaint: Vomiting Stated Complaint: VOMIT BLOOD Time Seen by Provider: 08/22/17 04:48 Notes: 22-year-old female, at 28 weeks gestation, comes by EMS for chief complaint of hematemesis. She states that she suddenly felt nauseated and she vomited up "pure blood", states that it had some clots in it as well, she states that there was about a handful of blood. She has not vomited since. She denies abdominal pain, chest pain, dizziness, black stools. She does take daily aspirin, she is followed by maternal- in [place] because of history of lupus and previous preeclampsia. She denies any other medications. She also states that she had a labor check yesterday morning which was normal. TRAVEL OUTSIDE OF THE [place] IN LAST 30 DAYS: No - Related Data Allergies/Adverse Reactions: latex Adverse Reaction (Mild, Verified 08/21/17 09:55) Past Medical History - Past Medical History Cardiac Medical History: Reports: Hx Hypertension - during pregnenacy Pulmonary Medical History: Reports: Hx Asthma Neurological Medical History: Reports: Hx Migraine Renal/ Medical History: Denies: Hx Peritoneal Dialysis Psychiatric Medical History: Reports: Hx Attention Deficit Hyperactivity Disorder Traumatic Medical History: Reports: Hx Fractures Past Surgical History: Reports: Hx Orthopedic Surgery - Immunizations Immunizations up to date: Yes Hx Diphtheria, Pertussis, Tetanus Vaccination: Yes Physical Exam - Vital signs Vitals: Temp Pulse Resp BP Pulse Ox 98.5 F 68 18 115/67 98 08/22/17 04:32 08/22/17 04:32 08/22/17 04:32 08/22/17 04:32 08/22/17 04:32 - HEENT Mouth/Lips: Normal Mucous membranes: Normal Pharynx: Normal Neck: Normal - Abdominal Inspection: Normal, Gravid female Tenderness: Nontender Course - Vital Signs Vital signs: Temp Pulse Resp BP Pulse Ox 98.5 F 68 18 115/67 98 08/22/17 04:32 08/22/17 04:32 08/22/17 04:32 08/22/17 04:32 08/22/17 04:32
[2017-08-22 05:22] LABS: ABSOLUTE EOSINOPHILS # (AUTO) 0.1 10^3/uL (0.0-0.6); ABSOLUTE LYMPHOCYTES (AUTO) 1.5 10^3/uL (0.5-4.7); ABSOLUTE MONOCYTES (AUTO) 0.7 10^3/uL (0.1-1.4); ABSOLUTE NEUT (AUTO) 4.5 10^3/uL (1.7-8.2); BASOPHILS % (AUTO) 0.5 % (0-2); EOSINOPHILS % (AUTO) 1.6 % (0-6); HEMATOCRIT 29.2 % (36.0-47.0); HEMOGLOBIN 10.2 g/dL (12.0-15.5); LYMPHOCYTES % (AUTO) 22.1 % (13-45); MEAN CORPUSCULAR HEMOGLOBIN 33.1 pg (27.0-33.4); MEAN CORPUSCULAR HGB CONC 34.8 g/dL (32.0-36.0); MEAN CORPUSCULAR VOLUME 95 fl (80-97); MONOCYTES % (AUTO) 10.5 % (3-13); PLATELET COUNT 191 10^3/uL (150-450); RED BLOOD COUNT 3.08 10^6/uL (3.72-5.28); SEGMENTED NEUTROPHILS % (AUTO) 65.3 % (42-78); TOTAL CELLS COUNTED % (AUTO) 100 %; WHITE BLOOD COUNT 6.9 10^3/uL (4.0-10.5)
[2017-08-22 05:24] LABS: INTERNATIONAL RATION (INR) 0.97; PARTIAL THROMBOPLASTIN TIME 31.2 SEC (23.5-35.8); PROTHROMBIN TIME 13.6 SEC (11.4-15.4)
[2017-08-22 05:29] LABS: ALANINE AMINOTRANSFERASE 23 U/L (9-52); ALBUMIN 3.4 g/dL (3.5-5.0); ALKALINE PHOSPHATASE 60 U/L (38-126); ANION GAP 11 (5-19); ASPARTATE AMINO TRANSFERASE 15 U/L (14-36); BILIRUBIN,DIRECT 0.1 mg/dL (0.0-0.4); BILIRUBIN,TOTAL 0.2 mg/dL (0.2-1.3); BLOOD UREA NITROGEN 7 mg/dL (7-20); CALCIUM 8.8 mg/dL (8.4-10.2); CARBON DIOXIDE 21 mmol/L (22-30); CHLORIDE 108 mmol/L (98-107); GLUCOSE 90 mg/dL (75-110); POTASSIUM 3.8 mmol/L (3.6-5.0); SODIUM 139.5 mmol/L (137-145); TOTAL PROTEIN 5.9 g/dL (6.3-8.2)
[2017-08-22] MEDS ORDERED: METOCLOPRAMIDE HCL INJ/PF 10 MG/2 ML SDV IV ONE (06:32)
[2017-08-22] MEDS ORDERED: PANTOPRAZOLE SODIUM 40 MG VIAL IV ONE (06:33)
[2017-08-22 06:34] VITALS: BP 109/73
[2017-08-22] MEDS ORDERED: NORMAL SALINE 1000 ML 1,000 ML IV ONE (06:35)
[2017-08-22] MEDS ORDERED: ACETAMINOPHEN 325 MG TABLET PO ONE (07:04)
--- NOTE | 2017-08-22 07:33 | ER Document Report ---
ED General - General Chief Complaint: Vomiting Stated Complaint: VOMIT BLOOD Time Seen by Provider: 08/22/17 04:48 TRAVEL OUTSIDE OF THE U[place] IN LAST 30 DAYS: No - HPI Patient complains to provider of: Vomiting Notes: Patient coming in today for one time episode of vomiting blood. Patient states it was approximately half of blood clots. Patient currently is on aspirin therapy due to workup for lupus. Patient is currently . Patient denies any recent vomiting states last time she vomited for night was approximately 2-3 days. Patient was recently seen and examined by her OB team which was normal. Patient was far made by her night PA states that examining the mouth there is no blood within the mouth. Patient denies any rectal bleeding. Denies any dark stools or bright red stools. By my evaluation patient is resting comfortably easily aroused. Patient is also now complaining of a headache. Denies any fevers chills denies any current nausea or vomiting. Patient last had tuna around 10:00. Patient states the vomiting occurred around 3 AM. - Related Data Allergies/Adverse Reactions: latex Adverse Reaction (Mild, Verified 08/21/17 09:55) Past Medical History - Social History Smoking Status: Unknown if Ever Smoked Family History: CAD, DM Patient has suicidal ideation: No Patient has homicidal ideation: No - Past Medical History Cardiac Medical History: Reports: Hx Hypertension - during pregnenacy Pulmonary Medical History: Reports: Hx Asthma Neurological Medical History: Reports: Hx Migraine Renal/ Medical History: Denies: Hx Peritoneal Dialysis Psychiatric Medical History: Reports: Hx Attention Deficit Hyperactivity Disorder Traumatic Medical History: Reports: Hx Fractures Past Surgical History: Reports: Hx Orthopedic Surgery - Immunizations Immunizations up to date: Yes Hx Diphtheria, Pertussis, Tetanus Vaccination: Yes Review of Systems - Review of Systems Constitutional: No symptoms reported EENT: No symptoms reported Cardiovascular: No symptoms reported Respiratory: No symptoms reported Gastrointestinal: Abdominal pain, Vomiting Genitourinary: No symptoms reported Female Genitourinary: No symptoms reported Musculoskeletal: No symptoms reported Skin: No symptoms reported Hematologic/Lymphatic: No symptoms reported Neurological/Psychological: No symptoms reported -: Yes All other systems reviewed and negative Physical Exam - Vital signs Vitals: Temp Pulse Resp BP Pulse Ox 98.5 F 68 18 115/67 98 08/22/17 04:32 08/22/17 04:32 08/22/17 04:32 08/22/17 04:32 08/22/17 04:32 Interpretation: Normal - General General appearance: Appears well, Alert - HEENT Head: Normocephalic, Atraumatic Eyes: Normal Pupils: PERRL - Respiratory Respiratory status: No respiratory distress Chest status: Nontender Breath sounds: Normal Chest palpation: Normal - Cardiovascular Rhythm: Regular Heart sounds: Normal auscultation Murmur: No - Abdominal Inspection: Normal, Gravid female Distension: No distension Bowel sounds: Normal Tenderness: Nontender Organomegaly: No organomegaly - Rectal Stool: Heme negative Hemorrhoids: None - Back Back: Normal, Nontender - Extremities General upper extremity: Normal inspection, Nontender, Normal color, Normal ROM , Normal temperature General lower extremity: Normal inspection, Nontender, Normal color, Normal ROM , Normal temperature, Normal weight bearing. No: Emiliana's sign - Neurological Neuro grossly intact: Yes Cognition: Normal Orientation: AAOx4 [place] Coma Scale Eye Opening: Spontaneous [place] Coma Scale Verbal: Oriented Evelyne Coma Scale Motor: Obeys Commands [place] Coma Scale Total: 15 Speech: Normal Motor strength normal: LUE, RUE, LLE, RLE Sensory: Normal - Psychological Associated symptoms: Normal affect, Normal mood - Skin Skin Temperature: Warm Skin Moisture: Dry Skin Color: Normal Course - Re-evaluation Re-evalutation: 08/22/17 08:10 Patient laboratory studies shows hemoglobin of 10.2. Last laboratory studies that we have from April patient had normal hemoglobin at that time. Rectal exam was negative. Patient was observed in ER for approximately 3-1/2-4 hours and no further evidence of vomiting. Plan was to talk to her ORDER DEPARTMENT SUPERVISOR and possibly GI at [facility] however after shift change notified him from the nurse that patient had a personal issue with her and was requested to sign out AGAINST MEDICAL ADVICE. Was later did notify the patient had pulled out her IV was walking down the hallway apparently making threats to the nurse. I did continue at approximately around 750 8:00 contacted transfer center at [facility] conference services coordinator was going to relay the information of the patient being here to their ORDER DEPARTMENT SUPERVISOR service. Explained to the transfer center patient came in vomited blood one time hemoglobin was 10.2 otherwise stable vital signs negative rectal exam. 08/22/17 09:00 Vital signs remained stable the entire time the patient was here during her visit. Again no further vomiting. - Vital Signs Vital signs: Temp Pulse Resp BP Pulse Ox 98.5 F 68 13 109/73 98 08/22/17 04:32 08/22/17 04:32 08/22/17 06:01 08/22/17 05:06 08/22/17 06:01 - Laboratory Result Diagrams: 08/22/17 05:00 08/22/17 05:00 Laboratory results interpreted by me: 08/22/17 08/22/17 05:00 05:00 RBC 3.08 L Hgb 10.2 L Hct 29.2 L Chloride 108 H Carbon Dioxide 21 L Total Protein 5.9 L Albumin 3.4 L Discharge - Discharge Clinical Impression: Vomiting of blood Qualifiers: Nausea presence: unspecified Qualified Code(s): K92.0 - Hematemesis Qualifiers: Weeks of gestation: 28 weeks Qualified Code(s): Z3A.28 - 28 weeks gestation of Condition: Good Disposition: ELOPED
== END 2017-08-22 08:05 | disposition left against medical advice (07) ==
LOC: ER 04:28
DX: O99.613 Diseases of the digestive system complicating pregnancy, third trimester (principal); K92.0 Hematemesis; O26.893 Other specified pregnancy related conditions, third trimester; R51 Headache; R10.9 Unspecified abdominal pain; O99.513 Diseases of the respiratory system complicating pregnancy, third trimester; J45.909 Unspecified asthma, uncomplicated; Z3A.28 28 weeks gestation of pregnancy; Z79.82 Long term (current) use of aspirin; Z53.20 Procedure and treatment not carried out because of patient's decision for unspecified reasons
CPT/HCPCS: 99281; 96361; 96374; 96375; 86900; 86901; 36415; 86850; 85025; 85610; 85730; 82272; 80053; J2765; J2405; J7030

== ENCOUNTER 2017-10-13 18:50 | Outpatient (CLI) | payer MEDICAID ==
[2017-10-13 19:49] LABS: APPEARANCE,URINE SLIGHTLY-CLOUDY; BILIRUBIN,URINE NEGATIVE (NEGATIVE); COLOR,URINE YELLOW; GLUCOSE, URINE NEGATIVE (NEGATIVE); KETONES,URINE TRACE mg/dL (NEGATIVE); LEUKOCYTE ESTERASE,URINE NEGATIVE (NEGATIVE); NITRITE,URINE NEGATIVE (NEGATIVE); PROTEIN,URINE 30 mg/dL (NEGATIVE); URINE SPECIFIC GRAVITY 1.016
[2017-10-13 20:15] LABS: URINE AMPHETAMINES SCREEN NEGATIVE; URINE BARBITURATES SCREEN NEGATIVE; URINE BENZODIAZEPINES SCREEN NEGATIVE; URINE COCAINE SCREEN NEGATIVE; URINE MARIJUANA (THC) SCREEN NEGATIVE; URINE METHADONE SCREEN NEGATIVE; URINE PHENCYCLIDINE SCREEN NEGATIVE
[2017-10-13] MEDS ORDERED: MAG HYDROX/AL HYDROX/SIMETH SUSP 30 ML UDCUP PO ONE (20:26)
[2017-10-13] MEDS ORDERED: MAG HYDROX/AL HYDROX/SIMETH SUSP 30 ML UDCUP ONE (20:27)
== END 2017-10-13 21:13 | disposition home or self-care (01) ==
LOC: LC 18:50
PROVIDERS: ATTEND Obstetrics & Gynecology
PROC: 4A1HXCZ Monitoring of Products of Conception, Cardiac Rate, External Approach (ICD-10-PCS; principal; 2017-10-13)
DX: O47.03 False labor before 37 completed weeks of gestation, third trimester (principal); Z3A.35 35 weeks gestation of pregnancy
CPT/HCPCS: 59025; 81001; 80307; J3490

== ENCOUNTER 2017-11-13 20:57 | Emergency (ER) | payer MEDICAID ==
[2017-11-13 21:07] VITALS: BP 133/78
== END 2017-11-13 23:06 | disposition left against medical advice (07) ==
LOC: ER 20:57
DX: Z53.21 Procedure and treatment not carried out due to patient leaving prior to being seen by health care provider (principal)

== ENCOUNTER 2018-11-06 18:56 | Observation (INO) | payer MEDICAID, OTHER ==
[2018-11-06] MEDS ORDERED: NORMAL SALINE 1000 ML 1,000 ML IV ONE ×2 (20:55→21:01)
[2018-11-06] MEDS ORDERED: ACETAMINOPHEN 325 MG TABLET PO ONE (21:01)
--- NOTE | 2018-11-06 21:35 | ER Document Report ---
ED GI/ - General Chief Complaint: Abdominal pain, vomiting Stated Complaint: VOMITING Time Seen by Provider: 11/06/18 20:54 Mode of Arrival: Ambulatory Information source: Patient Notes: 33-year-old female presented to ED for complaint of abdominal pain cramping nausea and vomiting. She states she is 29 weeks and was seen in [facility] last night and they put the baby monitor on her and and sent her home. She is told him that she had been having a fever off and on but they did not do any blood work according to the patient. She states she does not have a local CONSTRUCTION MANAGEMENT INSTRUCTOR and just returned to the [place] from [place] where she has been being seen. Patient is alert oriented respirations regular and unlabored she does have a pulse of 124 and a temp of 101.6. TRAVEL OUTSIDE OF THE [place]S. IN LAST 30 DAYS: No - HPI Patient complains to provider of: Abdominal pain, Pelvic pain, , Other - Dizzy Onset: Other - Several days Timing/Duration: Gradual, Worse Quality of pain: Sharp Severity at maximum: Moderate Severity in ED: Moderate Pain Level: 4 Location: Suprapubic, Other - Generalized abdominal pain Menstrual period history: Associated symptoms: Dizzy, Nausea, Vomiting Exacerbated by: Denies Relieved by: Denies Similar symptoms previously: Yes Recently seen / treated by doctor: Yes - Related Data Allergies/Adverse Reactions: latex Adverse Reaction (Mild, Verified 08/21/17 09:55) Past Medical History - General Information source: Patient - Social History Smoking Status: Never Smoker Lives with: Family Family History: CAD, DM Patient has suicidal ideation: No Patient has homicidal ideation: No - Past Medical History Cardiac Medical History: Reports: Hx Hypertension - during pregnenacy Pulmonary Medical History: Reports: Hx Asthma EENT Medical History: Reports: None Neurological Medical History: Reports: Hx Migraine Endocrine Medical History: Reports: None Renal/ Medical History: Reports: None Malignancy Medical History: Reports: None GI Medical History: Reports: None Musculoskeletal Medical History: Reports None Skin Medical History: Reports None Psychiatric Medical History: Reports: Hx Attention Deficit Hyperactivity Disorder Traumatic Medical History: Reports: Hx Fractures Infectious Medical History: Reports: None Past Surgical History: Reports: Hx Orthopedic Surgery - Immunizations Immunizations up to date: Yes Hx Diphtheria, Pertussis, Tetanus Vaccination: Yes Review of Systems - Review of Systems Constitutional: No symptoms reported EENT: No symptoms reported Cardiovascular: No symptoms reported Respiratory: No symptoms reported Gastrointestinal: Abdominal pain, Nausea, Vomiting Genitourinary: No symptoms reported Female Genitourinary: Musculoskeletal: No symptoms reported Skin: No symptoms reported Hematologic/Lymphatic: No symptoms reported Neurological/Psychological: No symptoms reported -: Yes All other systems reviewed and negative Physical Exam - Vital signs Vitals: Temp Pulse Resp BP Pulse Ox 101.6 F H 124 H 18 147/75 H 96 11/06/18 19:06 11/06/18 19:06 11/06/18 19:06 11/06/18 19:06 11/06/18 19:06 Interpretation: Normal - General General appearance: Appears well, Alert - HEENT Head: Normocephalic, Atraumatic Eyes: Normal Pupils: PERRL - Respiratory Respiratory status: No respiratory distress Chest status: Nontender Breath sounds: Normal Chest palpation: Normal - Cardiovascular Rhythm: Regular Heart sounds: Normal auscultation Murmur: No - Abdominal Inspection: Gravid female Distension: No distension Bowel sounds: Normal Tenderness: Tender Organomegaly: No organomegaly - Back Back: Normal, Nontender - Extremities General upper extremity: Normal inspection, Nontender, Normal color, Normal ROM, Normal temperature General lower extremity: Normal inspection, Nontender, Normal color, Normal ROM, Normal temperature, Normal weight bearing. No: Emiliana's sign - Neurological Neuro grossly intact: Yes Cognition: Normal Orientation: AAOx4 Standard Coma Scale Eye Opening: Spontaneous Evelyne Coma Scale Verbal: Oriented Standard Coma Scale Motor: Obeys Commands [place] Coma Scale Total: 15 Speech: Normal Motor strength normal: LUE, RUE, LLE, RLE Sensory: Normal - Psychological Associated symptoms: Normal affect, Normal mood - Skin Skin Temperature: Warm Skin Moisture: Dry Skin Color: Normal Course - Re-evaluation Re-evalutation: 11/07/18 00:[address] [facility] for this 23-year-old female who is 27 weeks 5 days according to ultrasound. According to patient she is 29 weeks. She has been nausea vomiting and diarrhea. She ate 1 popsicle but then had an emesis after the popsicle. After I had already spoken with Dr. Hurd. Dr. Hurd did accept the patient for admission overnight to the second floor. Patient has been treated with 2 L of fluids and is getting the second liter going at 150 cc an hour until admission. 11/07/18 00:[address] Hurd concerning the increase in vomiting. He stated that the patient can have Phenergan at this time. She is also got vitamin B6 ordered. She patient states while she was vomiting that she also suddenly was very wet and did not urinate. I did inform him of this and she stated that she can go up to second floor that he is sure she urinated. Patient will be transferred up to the second floor which is the floor. Kimberly lara will be administered her Phenergan and her 6 IM. - Vital Signs Vital signs: Temp Pulse Resp BP Pulse Ox 99.6 F 105 H 18 106/54 L 97 11/06/18 21:42 11/06/18 23:36 11/06/18 23:36 11/06/18 23:36 11/06/18 23:36 - Laboratory Result Diagrams: 11/06/18 21:22 11/06/18 21:22 Laboratory results interpreted by me: 11/06/18 11/06/18 11/06/18 21:22 21:22 21:22 WBC 11.9 H RBC 3.16 L Hgb 10.1 L Hct 29.3 L RDW 14.8 H Seg Neutrophils % 84.2 H Lymphocytes % 6.5 L Absolute Neutrophils 10.0 H Sodium 134.7 L BUN 5 L Urine Protein 30 H Urine Ketones 80 H Urine Bilirubin SMALL H Urine Urobilinogen 4.0 H - Diagnostic Test Radiology reviewed: Image reviewed, Reports reviewed Discharge - Discharge Clinical Impression: Vomiting affecting , Abdominal pain affecting Disposition: ADMITTED OBSERVATION Admitting Provider: [facility] Admitted: Post
[2018-11-06 21:40] LABS: VENOUS BLOOD BASE EXCESS -3.6 mmol/L; VENOUS BLOOD HCO3 21.4 mmol/L (20-32); VENOUS BLOOD PCO2 38.6 mmHg (35-63); VENOUS BLOOD PH 7.36 (7.30-7.42)
[2018-11-06 21:45] LABS: ABSOLUTE LYMPHOCYTES (AUTO) 0.8 10^3/uL (0.5-4.7); BASOPHILS % (AUTO) 0.3 % (0-2); EOSINOPHILS % (AUTO) 0.4 % (0-6); HEMATOCRIT 29.3 % (36.0-47.0); HEMOGLOBIN 10.1 g/dL (12.0-15.5); LYMPHOCYTES % (AUTO) 6.5 % (13-45); MEAN CORPUSCULAR HEMOGLOBIN 32.1 pg (27.0-33.4); MEAN CORPUSCULAR HGB CONC 34.6 g/dL (32.0-36.0); MEAN CORPUSCULAR VOLUME 93 fl (80-97); MONOCYTES % (AUTO) 8.6 % (3-13); PLATELET COUNT 241 10^3/uL (150-450); RED BLOOD COUNT 3.16 10^6/uL (3.72-5.28); RED CELL DISTRIBUTION WIDTH 14.8 % (11.5-14.0); SEGMENTED NEUTROPHILS % (AUTO) 84.2 % (42-78); TOTAL CELLS COUNTED % (AUTO) 100 %; WHITE BLOOD COUNT 11.9 10^3/uL (4.0-10.5)
[2018-11-06 21:47] LABS: APPEARANCE,URINE CLEAR; BILIRUBIN,URINE SMALL (NEGATIVE); COLOR,URINE AMBER; GLUCOSE, URINE NEGATIVE (NEGATIVE); KETONES,URINE 80 mg/dL (NEGATIVE); LEUKOCYTE ESTERASE,URINE NEGATIVE (NEGATIVE); NITRITE,URINE NEGATIVE (NEGATIVE); PROTEIN,URINE 30 mg/dL (NEGATIVE); URINE SPECIFIC GRAVITY 1.027
[2018-11-06 22:05] LABS: ALANINE AMINOTRANSFERASE 20 U/L (9-52); ALKALINE PHOSPHATASE 98 U/L (38-126); ANION GAP 10 (5-19); ASPARTATE AMINO TRANSFERASE 16 U/L (14-36); BILIRUBIN,DIRECT 0.2 mg/dL (0.0-0.4); BILIRUBIN,TOTAL 0.7 mg/dL (0.2-1.3); BLOOD UREA NITROGEN 5 mg/dL (7-20); CALCIUM 9.2 mg/dL (8.4-10.2); CARBON DIOXIDE 22 mmol/L (22-30); CHLORIDE 103 mmol/L (98-107); GLUCOSE 99 mg/dL (75-110); POTASSIUM 3.8 mmol/L (3.6-5.0); SODIUM 134.7 mmol/L (137-145); TOTAL PROTEIN 7.1 g/dL (6.3-8.2)
--- NOTE | 2018-11-06 23:38 | RADIOLOGY REPORT (SQ) ---
EXAM DESCRIPTION: US LIMITED COMPLETED DATE/TME: 11/06/2018 22:23 CLINICAL HISTORY: 23 years, Female, abdominal pain nvd COMPARISON: 07/09/2017 ultrasound TECHNIQUE: Limited second/third trimester ultrasound LIMITATIONS: None. FINDINGS: There is a single, live intrauterine gestation in the cephalic presentation. Cervical length is 3.7 cm. Amniotic fluid volume is 17.7 cm. A detailed anatomic assessment not performed. heart tones obtained at 149 bpm. Current gestational /clinical age is 27 weeks 5 days. IMPRESSION: Single, live intrauterine gestation in the cephalic presentation, as above. Continued nonemergent obstetric follow-up recommended copyright 2010 [employer]- All Rights Reserved
[2018-11-07] MEDS ORDERED: DEXTROSE 5%-LACTATED RINGERS 1,000 ML IV ONE (00:03)
[2018-11-07] MEDS ORDERED: PYRIDOXINE HCL INJ 100 MG/1 ML VIAL IM ONE (00:33)
[2018-11-07] MEDS ORDERED: PROMETHAZINE HCL INJ 25 MG/1 ML VIAL IV ONE (00:47)
[2018-11-07] MEDS ORDERED: PYRIDOXINE HCL INJ 100 MG/1 ML VIAL ONE (00:48)
[2018-11-07] MEDS ORDERED: BENZOCAINE/MENTHOL SORE THROAT LOZENGE BUCCAL PRN (05:50)
--- NOTE | 2018-11-07 07:05 | PDOC H&P ---
History of Present Illness Admission Date/PCP: 11/07/18 00:12 pt seen in ER with N/V and elevated temp and dehydration. After 2 liters of fluid and antiemetics pt unable to tolerate liquids and is admitted for fluid management History of Present Illness: LIS SWIFT is a 23 year old female admitted with probable viral syndrome with N/V Past Medical History Cardiac Medical History: Reports: Hypertension Pulmonary Medical History: Reports: Asthma EENT Medical History: Reports: None Neurological Medical History: Reports: Migraine Endocrine Medical History: Reports: None Renal/ Medical History: Reports: None Malignancy Medical History: Reports: None GI Medical History: Reports: None Musculoskeltal Medical History: Reports: None Skin Medical History: Reports: None Psychiatric Medical History: Reports: Attention Deficit Hyperactivity Disorder Infectious Medical History: Reports: None Past Surgical History Past Surgical History: Reports: Orthopedic Surgery Social History Lives with: Family Smoking Status: Never Smoker Drugs: None - Advance Directive Resuscitation Status: Full Code Family History Family History: CAD, DM Parental Family History Reviewed: Yes Children Family History Reviewed: Yes Sibling(s) Family History Reviewed.: Yes Medication/Allergy Home Medications: Aspirin [Aspirin 81 mg Chewable Tablet] 81 mg PO DAILY 08/21/17 Ferrous Gluconate [Fergon] 1 tab PO DAILY 10/13/17 Iron 1 tab PO DAILY 10/13/17 Allergies/Adverse Reactions: latex Adverse Reaction (Mild, Verified 08/21/17 09:55) Physical Exam - Physical Exam Vital Signs: Temp Pulse Resp BP Pulse Ox 99.9 F 88 18 122/54 L 68 L 11/07/18 04:28 11/07/18 04:28 11/07/18 04:28 11/07/18 04:28 11/07/18 04:28 Intake & Output 11/06/18 11/07/18 11/08/18 06:59 06:59 06:59 Intake Total 2240 Balance 2240 Weight 79.6 kg General appearance: PRESENT: mild distress Result Laboratory Results: 11/06/18 21:22 11/06/18 21:22 11/06/18 11/06/18 11/06/18 21:22 21:22 21:22 WBC 11.9 H RBC 3.16 L Hgb 10.1 L Hct 29.3 L MCV 93 MCH 32.1 MCHC 34.6 RDW 14.8 H Plt Count 241 Seg Neutrophils % 84.2 H Lymphocytes % 6.5 L Monocytes % 8.6 Eosinophils % 0.4 Basophils % 0.3 Absolute Neutrophils 10.0 H Absolute Lymphocytes 0.8 Absolute Monocytes 1.0 Absolute Eosinophils 0.0 Absolute Basophils 0.0 VBG pH VBG pCO2 VBG HCO3 VBG Base Excess Sodium 134.7 L Potassium 3.8 Chloride 103 Carbon Dioxide 22 Anion Gap 10 BUN 5 L Creatinine 0.68 Est GFR ( Amer) > 60 Est GFR (Non-Af Amer) > 60 Glucose 99 Lactic Acid 0.8 Calcium 9.2 Total Bilirubin 0.7 AST 16 ALT 20 Alkaline Phosphatase 98 Total Protein 7.1 Albumin 4.0 Urine Color Urine Appearance Urine pH Ur Specific [place] Urine Protein Urine Glucose (UA) Urine Ketones Urine Blood Urine Nitrite Ur Leukocyte Esterase Urine WBC (Auto) Urine RBC (Auto) 11/06/18 11/06/18 21:22 21:22 WBC RBC Hgb Hct MCV MCH MCHC RDW Plt Count Seg Neutrophils % Lymphocytes % Monocytes % Eosinophils % Basophils % Absolute Neutrophils Absolute Lymphocytes Absolute Monocytes Absolute Eosinophils Absolute Basophils VBG pH 7.36 VBG pCO2 38.6 VBG HCO3 21.4 VBG Base Excess -3.6 Sodium Potassium Chloride Carbon Dioxide Anion Gap BUN Creatinine Est GFR ( Amer) Est GFR (Non-Af Amer) Glucose Lactic Acid Calcium Total Bilirubin AST ALT Alkaline Phosphatase Total Protein Albumin Urine Color [place] Urine Appearance CLEAR Urine pH 6.0 Ur Specific [place] 1.027 Urine Protein 30 H Urine Glucose (UA) NEGATIVE Urine Ketones 80 H Urine Blood NEGATIVE Urine Nitrite NEGATIVE Ur Leukocyte Esterase NEGATIVE Urine WBC (Auto) 6 Urine RBC (Auto) 3 Impressions: Obstetrics Ultrasound 11/06/18 22:23 IMPRESSION: Single, live intrauterine gestation in the cephalic presentation, as above. Continued nonemergent obstetric follow-up recommended copyright 2010 [employer]- All Rights Reserved Assessment & Plan - Plan Summary Plan Summary: IV hydration and symptomatic care
[2018-11-07] MEDS ORDERED: ONDANSETRON HCL INJ/PF 4 MG/2 ML SDV ONE (08:35)
[2018-11-07] MEDS ORDERED: DEXTROSE 5%-LACTATED RINGERS 1,000 ML IV PRN (08:39)
[2018-11-07] MEDS ORDERED: ONDANSETRON HCL INJ/PF 4 MG/2 ML SDV IV ONE (08:39)
[2018-11-07] MEDS ORDERED: ACETAMINOPHEN 325 MG TABLET PO PRN (08:44)
[2018-11-07 11:28] VITALS: BP 111/50
--- NOTE | 2018-11-07 11:32 | PDOC PROGRESS REPORT ---
Addendum entered and electronically signed by BRIT SNOW CNM 11/07/18 14:41: Subjective Progress Note for:: 11/07/18 Subjective:: addedum: preliminary result on Urine culture obtained and discussed with Dr. Theodore. Pt. declined inpatient therapy but allowed 1gm rocephin to be given then signed out AM. Reviewed with Dr. Theodore, rx given for Macrobid 100mg bid and once again encouraged to obtain care MIGUELANGEL. Pt. reports she is awaiting appt at [facility] for OB referral. Pt. undersands that she is signing out AMA and risking her and her baby's life by leaving. Reason For Visit: VOMITING AFFECTING Physical Exam - Physical Exam Vital Signs: Temp Pulse Resp BP Pulse Ox 100.7 F H 115 H 16 111/50 L 97 11/07/18 11:10 11/07/18 11:10 11/07/18 11:10 11/07/18 11:10 11/07/18 11:10 Intake & Output 11/06/18 11/07/18 11/08/18 06:59 06:59 06:59 Intake Total 2240 1050 Balance 2240 1050 Weight 79.6 kg Result Laboratory Results: 11/06/18 21:22 11/06/18 21:22 11/06/18 11/06/18 11/06/18 21:22 21:22 21:22 WBC 11.9 H RBC 3.16 L Hgb 10.1 L Hct 29.3 L MCV 93 MCH 32.1 MCHC 34.6 RDW 14.8 H Plt Count 241 Seg Neutrophils % 84.2 H Lymphocytes % 6.5 L Monocytes % 8.6 Eosinophils % 0.4 Basophils % 0.3 Absolute Neutrophils 10.0 H Absolute Lymphocytes 0.8 Absolute Monocytes 1.0 Absolute Eosinophils 0.0 Absolute Basophils 0.0 VBG pH VBG pCO2 VBG HCO3 VBG Base Excess Sodium 134.7 L Potassium 3.8 Chloride 103 Carbon Dioxide 22 Anion Gap 10 BUN 5 L Creatinine 0.68 Est GFR ( Amer) > 60 Est GFR (Non-Af Amer) > 60 Glucose 99 Lactic Acid 0.8 Calcium 9.2 Total Bilirubin 0.7 AST 16 ALT 20 Alkaline Phosphatase 98 Total Protein 7.1 Albumin 4.0 Urine Color Urine Appearance Urine pH Ur Specific [place] Urine Protein Urine Glucose (UA) Urine Ketones Urine Blood Urine Nitrite Ur Leukocyte Esterase Urine WBC (Auto) Urine RBC (Auto) 11/06/18 11/06/18 21:22 21:22 WBC RBC Hgb Hct MCV MCH MCHC RDW Plt Count Seg Neutrophils % Lymphocytes % Monocytes % Eosinophils % Basophils % Absolute Neutrophils Absolute Lymphocytes Absolute Monocytes Absolute Eosinophils Absolute Basophils VBG pH 7.36 VBG pCO2 38.6 VBG HCO3 21.4 VBG Base Excess -3.6 Sodium Potassium Chloride Carbon Dioxide Anion Gap BUN Creatinine Est GFR ( Amer) Est GFR (Non-Af Amer) Glucose Lactic Acid Calcium Total Bilirubin AST ALT Alkaline Phosphatase Total Protein Albumin Urine Color [place] Urine Appearance CLEAR Urine pH 6.0 Ur Specific [place] 1.027 Urine Protein 30 H Urine Glucose (UA) NEGATIVE Urine Ketones 80 H Urine Blood NEGATIVE Urine Nitrite NEGATIVE Ur Leukocyte Esterase NEGATIVE Urine WBC (Auto) 6 Urine RBC (Auto) 3 Impressions: Obstetrics Ultrasound 11/06/18 22:23 IMPRESSION: Single, live intrauterine gestation in the cephalic presentation, as above. Continued nonemergent obstetric follow-up recommended copyright [employer]- All Rights Reserved Assessment & Plan - Diagnosis (1) Abdominal pain affecting Is this a current diagnosis for this admission?: Yes (2) Pyelonephritis affecting in third trimester Is this a current diagnosis for this admission?: Yes (3) Vomiting affecting Is this a current diagnosis for this admission?: Yes (4) Limited care in third trimester Is this a current diagnosis for this admission?: Yes Original Note: Subjective Progress Note for:: 11/07/18 Subjective:: 23yo female in third trimester who was admitted this AM for vomiting and fever. Pt. reports her symptoms started about 2 days ago with throat ache which then turned into body aches and vomiting as well as fever. Pt. presented to [facility] triage and was told her baby looked ok and to PO hydrate and was discharged. Unable to keep fluids and urinate, she then presented to our ER yesterday afternoon and was admitted. Cultures were obtained and still unable to keep po fluids. Pt. has questions about plan of care and discharge. Has not had any care since September. Pt. was able to void x1 today Reason For Visit: VOMITING AFFECTING Physical Exam - Physical Exam Vital Signs: Temp Pulse Resp BP Pulse Ox 100.3 F 118 H 18 117/58 L 97 11/07/18 08:01 11/07/18 08:01 11/07/18 08:01 11/07/18 08:01 11/07/18 08:01 Intake & Output 11/06/18 11/07/18 11/08/18 06:59 06:59 06:59 Intake Total 2240 1000 Balance 2240 1000 Weight 79.6 kg General appearance: PRESENT: no acute distress Respiratory exam: PRESENT: other - no respiratory distress Psychiatric exam: PRESENT: flat affect Result Laboratory Results: 11/06/18 21:22 11/06/18 21:22 11/06/18 11/06/18 11/06/18 21:22 21:22 21:22 WBC 11.9 H RBC 3.16 L Hgb 10.1 L Hct 29.3 L MCV 93 MCH 32.1 MCHC 34.6 RDW 14.8 H Plt Count 241 Seg Neutrophils % 84.2 H Lymphocytes % 6.5 L Monocytes % 8.6 Eosinophils % 0.4 Basophils % 0.3 Absolute Neutrophils 10.0 H Absolute Lymphocytes 0.8 Absolute Monocytes 1.0 Absolute Eosinophils 0.0 Absolute Basophils 0.0 VBG pH VBG pCO2 VBG HCO3 VBG Base Excess Sodium 134.7 L Potassium 3.8 Chloride 103 Carbon Dioxide 22 Anion Gap 10 BUN 5 L Creatinine 0.68 Est GFR ( Amer) > 60 Est GFR (Non-Af Amer) > 60 Glucose 99 Lactic Acid 0.8 Calcium 9.2 Total Bilirubin 0.7 AST 16 ALT 20 Alkaline Phosphatase 98 Total Protein 7.1 Albumin 4.0 Urine Color Urine Appearance Urine pH Ur Specific [place] Urine Protein Urine Glucose (UA) Urine Ketones Urine Blood Urine Nitrite Ur Leukocyte Esterase Urine WBC (Auto) Urine RBC (Auto) 11/06/18 11/06/18 21:22 21:22 WBC RBC Hgb Hct MCV MCH MCHC RDW Plt Count Seg Neutrophils % Lymphocytes % Monocytes % Eosinophils % Basophils % Absolute Neutrophils Absolute Lymphocytes Absolute Monocytes Absolute Eosinophils Absolute Basophils VBG pH 7.36 VBG pCO2 38.6 VBG HCO3 21.4 VBG Base Excess -3.6 Sodium Potassium Chloride Carbon Dioxide Anion Gap BUN Creatinine Est GFR ( Amer) Est GFR (Non-Af Amer) Glucose Lactic Acid Calcium Total Bilirubin AST ALT Alkaline Phosphatase Total Protein Albumin Urine Color [place] Urine Appearance CLEAR Urine pH 6.0 Ur Specific [place] 1.027 Urine Protein 30 H Urine Glucose (UA) NEGATIVE Urine Ketones 80 H Urine Blood NEGATIVE Urine Nitrite NEGATIVE Ur Leukocyte Esterase NEGATIVE Urine WBC (Auto) 6 Urine RBC (Auto) 3 Impressions: Obstetrics Ultrasound 11/06/18 22:23 IMPRESSION: Single, live intrauterine gestation in the cephalic presentation, as above. Continued nonemergent obstetric follow-up recommended copyright 2010 [employer]- All Rights Reserved Assessment & Plan - Diagnosis (1) Abdominal pain affecting Is this a current diagnosis for this admission?: Yes Plan: pt reports all over body ache not just abdominal but better this am after IV h ydration. Anatomy u/s to be performed (2) Pyelonephritis affecting in third trimester Is this a current diagnosis for this admission?: Yes Plan: discussed preliminary findings with Dr. Theodore, adam ordered as well as tylenol. (3) Vomiting affecting Is this a current diagnosis for this admission?: Yes Plan: continue IV fluids and zofran, will attempt po fluids and advance as tolerated (4) Limited care in third trimester Is this a current diagnosis for this admission?: Yes Plan: discharge planning consult placed, anatomy u/s ordered, discussed plan and urged to establish care MIGUELANGEL
[2018-11-07] MEDS ORDERED: CEFTRIAXONE 1 GM/D5W RTU 1 GM/50 ML RTUPB IV SCH (11:45)
== END 2018-11-07 13:08 | disposition left against medical advice (07) ==
LOC: ER 18:56 → EH 11-07 00:12 → 2S 11-07 02:37
PROVIDERS: ADMIT Obstetrics & Gynecology Gynecology; ATTEND Obstetrics & Gynecology Gynecology
DX: O26.893 Other specified pregnancy related conditions, third trimester (principal); R10.84 Generalized abdominal pain; O23.03 Infections of kidney in pregnancy, third trimester; O21.9 Vomiting of pregnancy, unspecified; O09.33 Supervision of pregnancy with insufficient antenatal care, third trimester; R50.9 Fever, unspecified; R42 Dizziness and giddiness; Z53.21 Procedure and treatment not carried out due to patient leaving prior to being seen by health care provider; Z79.82 Long term (current) use of aspirin; Z79.899 Other long term (current) drug therapy; Z3A.27 27 weeks gestation of pregnancy
CPT/HCPCS: 99285; 96360; 96361; 36415; 87040; 87070; 87086; 87880; 85025; 87088; 80053; 81001; 87186; 82803; 83605; 76815; J2550; J3415; J2405; J7030; J0696